=== PATIENT | female | born 1970 | race Caucasian/White ===

== ENCOUNTER 2023-02-25 06:08 | Day surgery (SDC) | payer BC, SELFPAY ==
[2023-02-25] VITALS (10 sets, daily range): BP systolic 138–176; BP diastolic 66–84; PULSE 44–62; RESP 8–19; TEMP 36–36.7; O2SAT 94–99; BMI 46.6
--- NOTE | 2023-02-25 06:29 | W.PM.PROGNOT ---
Date of Service Date of service: 02/25/23 Time of Service: 06:57 Assessment and Plan Assessment and plan (1) Chronic cholecystitis: Status: Acute Assessment and plan: Mrs Martinez is a pleasant 52-year-old female with a history of abdominal pain especially after eating fatty foods.? She is being seen in [facility] today prior to her procedure. This has been ongoing intermittently for 10 years.? Recently has become constant.? She is also recently developed loose stools although they are not necessarily correlated with eating.? Although her ejection fracture on her HIDA scan was low normal she did have pain with the injection of CCK which is a good indicator that she more than likely has chronic cholecystitis.? She never did have an ultrasound. I reviewed laparoscopic cholecystectomy with the possibility of having to go open with the patient.? I used a pamphlet with pictures to go over the pathophysiology of gallbladder disease as well as the surgery itself.? We reviewed the possible complications.? Patient seemed to have a good understanding of the complications and asked good questions.? Risks, benefits, complications were reviewed with the patient in the office.? Complications include but are not limited to bleeding, infection, injury to stomach, small bowel and large bowel, injury to the pancreas, injury to the common bile duct necessitating drainage and referral to tertiary center for repair, bile leak, adverse reactions to the medications, complications of intubation including a sore throat or injury to the uvula, [place], stroke and even .? Questions were entertained and answered to her satisfaction and she wished to proceed.? No guarantees were given or implied. Because of her previous laparoscopic surgeries I will do an open port placement at the umbilicus to make sure that she does not have bowel adhered to the abdominal wall.? I did discuss with her that she is at slight increased risk of surgical site infection due to her obesity as well as readmission and serious complications.? Surgical risk calculator was used which showed her risk of serious complication at 4.7% with the average being 2.3%.? She is at increased risk for pneumonia.(Serious complications include heart attack, pneumonia, kidney failure, blood clots, returning to the OR, wound infection, sepsis and intubation after surgery.? She is also at increased risk for hernias.? She understands these risks and wishes to proceed. Anesthesia: general with airway Previous surgical intolerances: No Previous surgical complications: No Pulmonary risk factors: Yes (obesity, YOUNG and asthma) Planned procedure: Yes Sleep apnea risks: YES (documented YOUNG-uses CPAP) Can climb one flight of stairs (12-13 steps) in less than 30 seconds without stopping and without symptoms: No The surgery proposed for this patient is: moderate risk Active cardiac conditions: none Active risk factors: Obesity, HTN, Asthma, YOUNG ASA (acetylsalicylic acid): not used Beta blockers: not used I also discussed with her postoperative expectations including going home the same day, using Tylenol, ibuprofen for pain.? More than likely she will need narcotics for 2 to 3 days.? Risk of blood clots if she does not move around after surgery were also reviewed. Proceed with with laparoscopic cholecystectomy possible open possible intraoperative cholangiogram. Subjective Subjective Interval history since last seen: I saw Rosanne in [facility] today. She is here today to have her Gallbladder removed. Since I saw her in the office she has not had any new symptoms. She denies any chest pain or palpitations. We reviewed the procedure again as well as the risks, benefits and complications. She has no more questions about the procedure or the risks and wishes to proceed. Exam Const General: comfortable and no acute distress Nutritional Appearance: average body habitus Orientation: alert and oriented x3 HENMT Head: normocephalic and atraumatic Resp Effort & Inspection: normal respiratory effort Auscultation: clear to auscultation bilaterally Cardio Rate: regular rate Rhythm: regular rhythm Time Spent with Patient Time Spent with Patient: <25 minutes Time was spent: counseling the patient
--- NOTE | 2023-02-25 06:31 | W.PM.OP ---
Date of service: 02/25/23 Time of Service: 08:48 Operative Note Operative Note DATE OF PROCEDURE: 02/25/23 PRE-OP DIAGNOSIS: chronic cholecystitis POST-OP DIAGNOSIS: same PROCEDURE: Laparoscopic Cholecystectomy SURGEON: Valorie Noe EVENT PLANNING INTERN: Sharyn Palomares ANESTHESIA TYPE: Local By Surgeon and General LMA/ETT Refer to Anesthesia Record ESTIMATED BLOOD LOSS: 25 PATHOLOGY: other (Gallbladder) COMPLICATIONS: None Patient was transported to: PACU Patient's condition: stable Indications: Mrs Martinez is a pleasant 52-year-old female with a history of abdominal pain especially after eating fatty foods.? This has been ongoing intermittently for 10 years.? Recently has become constant.? She is also recently developed loose stools although they are not necessarily correlated with eating.? Although her ejection fracture on her HIDA scan was low normal she did have pain with the injection of CCK which is a good indicator that she more than likely has chronic cholecystitis.? She never did have an ultrasound. Findings: Normal appearing Gallbladder Liver with fatty infiltration and irregular contour Procedure Description: After informed consent was obtained the patient was brought to the operating room, placed in a supine position and monitors were applied. SCDs were applied to her lower extremities and she was placed under general anesthesia and intubated without difficulty. Her abdomen was then prepped and draped in a sterile fashion using ChloraPrep. At this point a timeout was done and the patient's name, date of , procedure type, allergies to medications, metal in her body, antibiotic and DVT prophylaxis were reviewed. Fire risk was assessed. At this point 0.25% Bupivocaine was injected just above the umbilicus into the dermis and subcutaneous tissue. A 10 mm incision was made with an 11 blade. The subcutaneous tissue was dissected with a hemostat. The fascia was grasped with cockers and the fascia was opened sharply. A 5 mm port was placed under direct visualization. The abdomen was insuflated and then 3 more ports were placed. A 12 mm port was placed in the subxiphoid area and two 5 mm ports were placed in the right upper quadrant. The liver was inspected. There was fatty infiltration and some cobbelstone appearance. The patient's bed was then turned to the left and her head was brought up. The gallbladder was grasped at the body and pushed towards the right shoulder, this allowed me to visualize the neck of the gallbladder. The neck was grasped and pulled towards the right flank and down allowing me to visualize the lymph node. Using a [place] dissector with cautery the lymph node was gently dissected away from the tissues and the fatty tissue was also dissected away. The cystic duct was identified it was normal in size. The duct was dissected 360 degrees using the [place] dissector in order for me to visualize its entrance into the gallbladder. Liver was noted behind it. There were no other structures right behind. Critical view was achieved. 3 clips were placed one proximal and 2 distal and the cystic duct was cut. The cystic artery was then identified and dissected 360 degrees. It was located just medial to the cystic duct. It was visualized going into the gallbladder. Once dissected 3 more clips were placed one proximal and 2 distal and the artery was cut. Using the hook dissector the gallbladder was then dissected away from the liver bed and placed into an Endo Catch bag and pulled through the 12 mm port site. The 12 mm port was placed back into the abdomen under direct visualization. The liver bed was inspected no bleeding was noted. There was a small amount of blood around along the right gutter and this was suctioned.normal saline until the effluent was clear. 10 cc of lidocaine was injected above the liver bed. The 12 mm fascial defect was closed with a 0 Vicryl suture using the endo suture. The 12 mm port was removed as well as the 2 right upper quadrant ports were removed under direct visualization and no bleeding was noted from the fascia. The abdomen was deflated completely and lastly the umbilical port was removed. The skin was cleaned and the incisions were closed with 4-0 Vicryl. The skin was dried and dermabond was applied over the closed incisions. Needle, instrument and sponge counts were correct at the end of the case. At this point the patient was woken up, extubated and taken back to recovery in stable condition. There were no immediate complications.
[2023-02-25] MEDS: Acetaminophen 500 MG TAB 1000 MG PO (06:42)
[2023-02-25] MEDS: Celecoxib 200 MG CAP PO (06:42)
[2023-02-25] MEDS: Gabapentin 300 MG CAP 600 MG PO (06:42)
[2023-02-25] MEDS: Lactated Ringers 1,000 ML 80 ML IV (06:50)
--- NOTE | 2023-02-25 07:01 | ANES.PREOP_ITS ---
General Info Date of Service Date Performed: 02/25/23 Height: 5 ft 2 in Weight: 115.7 kg Body Mass Index (BMI): 46.6 Surgical Procedure: Operation Date: 02/25/23 07:40 Proposed Procedure Side Surgeon p Cholecystectomy Laparoscopic Valorie Noe MD Meds Allergies and Home Medications Allergies Allergy/AdvReac Type Severity Reaction Status Date / Time Penicillins Allergy Intermediate Hives Verified 02/25/23 06:17 Sulfa (Sulfonamide Allergy Intermediate Hives Verified 02/25/23 06:17 Antibiotics) Home Medication Medication Instructions Recorded hydroxychloroquine 200 mg tablet 200 mg PO BID 02/05/23 cholecalciferol (vitamin D3) 125 125 mcg PO DAILY 02/10/23 mcg (5,000 unit) capsule citalopram 20 mg tablet 20 mg PO DAILY 02/10/23 loratadine 10 mg capsule 10 mg PO DAILY 02/10/23 metoprolol succinate 100 mg 100 mg PO DAILY 02/10/23 tablet,extended release 24 hr metoprolol succinate 50 mg 50 mg PO DAILY 02/10/23 tablet,extended release 24 hr oxybutynin chloride 5 mg tablet 5 mg PO DAILY 02/10/23 pantoprazole 40 mg tablet,delayed 40 mg PO DAILY 02/10/23 release simvastatin 20 mg tablet 20 mg PO DAILY 02/10/23 simvastatin 40 mg tablet 40 mg PO DAILY 02/10/23 vitamin B12 500 mcg-folic acid 400 1 tab PO DAILY 02/10/23 mcg tablet Current Visit Medications: Current Medications Generic Name Dose Route Start Last Admin Trade Name Freq PRN Reason Stop Dose Admin Acetaminophen 1,000 mg 02/25/23 06:00 02/25/23 06:42 Acetaminophen 500 Mg Tab PO 03/26/23 23:59 1,000 mg PREOP SKINNY Administration Celecoxib 200 mg 02/25/23 06:00 02/25/23 06:42 Celecoxib 200 Mg Cap PO 03/26/23 23:59 200 mg PREOP SKINNY Administration Gabapentin 600 mg 02/25/23 06:00 02/25/23 06:42 Gabapentin 300 Mg Cap PO 03/26/23 23:59 600 mg PREOP SKINNY Administration Ringer's Solution 1,000 mls @ 80 mls/hr 02/25/23 06:00 02/25/23 06:50 IV 03/26/23 23:59 80 mls/hr INFUSION SKINNY Administration Cefazolin Sodium/Dextrose 2 gm in 50 mls @ 100 mls/hr 02/25/23 06:00 Ancef Duplex IVPB 03/26/23 23:59 PREOP SKINNY Ondansetron HCl 4 mg/ Sodium 52 mls @ 200 mls/hr 02/25/23 06:33 Chloride IVPB 03/27/23 06:32 Q6H PRN PRN IV Miscellaneous Supplies 1 each 02/25/23 06:00 Iv Access IV 03/26/23 23:59 DIRECTED SKINNY Ibuprofen 600 mg 02/25/23 06:33 Ibuprofen 600 Mg Tab PO 03/27/23 06:32 Q6H PRN PRN Pain Sodium Chloride 0 ml 02/25/23 06:00 Normal Saline Flush 10 Ml Syr IV 03/26/23 23:59 PRN PRN Sodium Chloride 0 ml 02/25/23 06:00 Normal Saline 10 Ml Vial IJ 03/26/23 23:59 DIRECTED PRN Sterile Water 0 ml 02/25/23 06:00 Water,Injection,Sterile 10 Ml Vial IJ 03/26/23 23:59 DIRECTED PRN Tramadol HCl 50 mg 02/25/23 06:33 Tramadol 50 Mg Tab PO 03/27/23 06:32 Q6H PRN PRN Pain PFSH Active Problems Active Problems: Problem Status Onset Code Asthma J45.909 Osteoarthritis of hip M16.9 Allergic rhinitis J30.9 Essential hypertension I10 Depression F32.A Stress incontinence (female) (male) N39.3 YOUNG (obstructive sleep apnea) G47.33 Abdominal pain R10.9 Chronic cholecystitis K81.1 Morbid obesity with BMI of 45.0-49.9, adult E66.01, Z68.42 Medical History Medical History High cholesterol Surgical History Surgical History S/P laparoscopy for endometriosis S/P tonsillectomy and adenoidectomy and uvulectomy S/P tubal ligation Tobacco Smoking/Tobacco Use Status: Current every day Tobacco Type: cigarettes Smoking packs per day: 1 Smoking cigarettes per day: 20.0 Years smoked: 38 Smoking pack- years: 38.00 Alcohol Alcohol Intake: current Alcohol intake frequency: holidays/special occasions only Substance Use Substance use: Never Substance use type: does not use Vital Signs and Lab Results Vital Signs Most Recent Vital Signs in EMR: Most Recent Vital Signs Temp Pulse Resp BP Pulse Ox 36.5 C 55 L 16 140/82 98 02/25/23 06:20 02/25/23 06:20 02/25/23 06:20 02/25/23 06:20 02/25/23 06:20 Lab Results Blood Type / Crossmatch: No Data to Display Complete Blood Count: No Data to Display Complete Metabolic Panel: No Data to Display Liver Function Panel: No Data to Display Coagulation Panel: No Data to Display Cardiac Panel: No Data to Display Arterial Blood Gas: No Data to Display Venous Blood Gas: No Data to Display Pancreas Panel: No Data to Display Thyroid Panel: No Data to Display Infectious Disease: No Data to Display Blood Cultures: No Data to Display Toxicology Panel: No Data to Display Panel: No Data to Display Anesthesia Assessment and Plan Anesthesia History Personal History: No History of Anesthesia Complications Family History: No Family History of Anesthesia Complications Exercise Tolerance Exercise Tolerance: Metabolic Equivalents>4 Pertinent Negatives Pertinent Negatives: No Symptoms of GERD, No Major Cardiovascular Symptoms or Complaints and No Major Pulmonary Symptoms or Complaints Cardiac & Pulmonary Exam Cardiac Exam: Normal S1/S2 Heart Sounds Pulmonary Exam: Clear Bilateral Breath Sounds Implantable Cardiac Device Does patient have a Pacemaker or an ICD?: No Airway Exam Known Difficult Airway: No Mallampati Class: 2 Mouth Opening: Normal (> 3cm) Thyromental Distance: Less than 3 cm Neck Range of Motion: Full ROM Neck Circumference: Thick Teeth Condition: Removable Dentures/Plates Upper ASA Classification ASA Score: ASA 3 Emergency Case?: No NPO Status NPO Status: NPO Clears >2 hours, Solids >8 hours Status Status: Not Relevant due to Medical History Anesthesia Plan Resuscitation Status: Full Code Anesthesia Technique: General Anesthesia Airway Planned: Endotracheal Tube Monitors Used: Standard Monitors
[2023-02-25] MEDS: ceFAZolin 2 GM/50 ML BAG IVPB (07:31)
--- NOTE | 2023-02-25 08:15 | GB_PTH ---
PATIENT: Rosanne Martinez LOC: [facility] U#:[id number] AGE/SX: 52/F ROOM: RE02/25/[address]: Valorie Noe MD : 1970 BED: DIS: 02/25/2023 SPEC #: [id number] RECD: 02/25/23 12:31 STATUS: [facility] #: [id number] SYLWIA: 02/25/23 08:[address]: Valorie Noe DEPT: Surgical Specimen RECD BY: Camille Alvarado ENTERED: 02/25/23 12:31 SP TYPE: GB OTHR DR: Brynn Sharp Tissues: 1 - GALLBLADDER Procedures: GROSS AND MICRO LEVEL 3 Comments: [id number]
[2023-02-25] MEDS: Bupivacaine 0.25% Pres-Free 30 ML VIAL (08:34)
--- NOTE | 2023-02-25 08:57 | W.PM.DSUDISC ---
Date of service: 02/25/23 Time of Service: 10:13 Discharge Plan Disposition Patient Disposition: Home Condition: Stable Discharge Details Reason For Visit: Lap. [facility] Attending Provider: Valorie Noe Primary Care Provider: Brynn Sharp Home Meds and New Rx's Prescriptions: New tramadol 50 mg tablet 50 mg PO Q6H PRNQty: 14 0RF Continued metoprolol succinate 100 mg tablet extended release 24 hr 100 mg PO DAILY metoprolol succinate 50 mg tablet extended release 24 hr 50 mg PO DAILY simvastatin 40 mg tablet 40 mg PO DAILY simvastatin 20 mg tablet 20 mg PO DAILY pantoprazole 40 mg tablet,delayed release (DR/EC) 40 mg PO DAILY loratadine 10 mg capsule 10 mg PO DAILY vitamin T91-lmmdo acid 500-400 mcg tablet 1 tab PO DAILY Rx Instructions: administer with a meal cholecalciferol (vitamin D3) 125 mcg (5,000 unit) capsule 125 mcg PO DAILY citalopram 20 mg tablet 20 mg PO DAILY oxybutynin chloride 5 mg tablet 5 mg PO DAILY hydroxychloroquine 200 mg tablet 200 mg PO BID Discharge Instructions Instructions: Low Fat Diet (DC), Non-Alcoholic Fatty Liver Disease (GEN), Laparoscopic Cholecystectomy (DC) Additional Instructions: Activity at Home after surgery: 1. Make sure you walk outside at least 4 times per day 2. You should be able to climb a flight of stairs 3. No driving while in pain or taking pain medications 4. No strenuous activity or heavy lifting (no more then 10 lb) for 2 weeks (laparoscopic surgery) Diet, Nutrition, & wound healin. Avoid alcohol until after you are recovered from your surgery 2. Make sure to eat plenty of lean protein (meat, fish, eggs, cottage cheese, beans) 3. Eat a variety of fruits and vegetables. Eat plenty of high fiber foods to avoid constipation. 4. Drink plenty of liquids to stay hydrated and avoid constipation Pain Medications: 1. Tylenol 650mg every 6 hours as needed and Ibuprofen 600 mg every 6 hours as needed. You may alternate between the 2 medications every 3 hours 2. If a narcotic has been prescribed take as directed only for breakthrough pain For Constipation: 1. Take Milk of Magnesia or MiraLax as needed for constipation Other: 1. You may shower daily. Do not scrub the incisions 2. Do not soak the incisions for 1 week 3. You may alternate ice and heat as needed for pain and swelling Wound Care: 1. Keep the incisions clean and dry Please call our office if you develop: 1. Fevers >101.5 2. Nausea or Vomiting 3. Worsening pain 4. Redness and thick discharge from the wounds If after hours please call the Hospital at and ask to speak to the on-call surgeon Stand Alone Forms: Anesthesia Discharge InstChristina, [place] ([facility]) Referrals: Sharyn Palomares PA [[facility]] - 03/05/23 Activity:: as above Shower/Bathe:: 24 hours Diet:: low fat Discharge Orders Discharge Orders: Discharge Order (Routine); Ordered 02/25/23 Ordered By: Valorie Noe DS: Diagnosis Discharge Diagnosis (1) Chronic cholecystitis: Status: Acute Asessment and Plan: The patient is doing well post-op from their Laparoscopic Cholecystectomy surgery.? They are having no nausea or vomiting. They are tolerating liquids and a snack. The pt is not having any chest pain or SOB.? Their pain is adequately controlled. They have been able to urinate.? ?HEENT:? no eye pain/drainage/redness/swelling. Mild sore throat ?Cardio- NSR, no chest pain, BP stable- see VS record ?Pulm: no sob or productive cough. No hemoptysis ?Incision- dressing is c/d/i w/ no excessive bleeding or drainage. Appropriately tender along the incisions. ?I discussed with the patient the findings at the time of surgery and the patient?s progress. ?We reviewed expectations at home; what the patient could expect for recovery time, and in the post-operative period.? We discussed the importance of walking to avoid blood clots and pneumonia.? We discussed and reviewed the patient's post-operative wound care and dressing needs.?? We reviewed their step-whiting pain management plan, Rx called to the pharmacy of their choice.? We reviewed activity and limitations-see discharge instructions. We reviewed warning signs, and when to seek medical attention- see d/c instructions.?? Patient was given a postoperative follow-up appointment. Patient verbalized understanding of their postoperative instructions, how do to take care of themselves and their incision, and the pain management plan. Please see discharge instructions.?
[2023-02-25] MEDS: fentaNYL 100 MCG/2 ML VIAL IVP ×2 (09:04→09:31)
[2023-02-25] MEDS: Ibuprofen 600 MG TAB PO (10:33)
[2023-02-25] MEDS: traMADol 50 MG TAB PO (10:59)
--- NOTE | 2023-02-25 11:06 | W.ANESPOSTOP ---
Postoperative Evaluation Date, Time and Location Date Performed: 02/25/23 Time Performed: 11:06 Patient Location: Day Surgery Unit Vital Signs Most Recent Imported Vital Signs: Most Recent Vital Signs Temp Pulse Resp BP Pulse Ox 36.3 C L 53 L 16 151/79 H 98 02/25/23 10:20 02/25/23 10:20 02/25/23 10:20 02/25/23 10:20 02/25/23 10:20 Pain Score Most Recent Pain Score: Most Recent Pain Score Pain Level 4 02/25/23 10:20 Assessment Mental Status: Awake (Alert & Oriented to Patient Baseline) Airway and Respiratory Function: Patent airway with normal (patient baseline) respiratory exam Cardiovascular Function: Hemodynamically Stable Hydration Status: Adequately Hydrated Nausea & Vomiting: No Nausea or Vomiting Pain: Pain is tolerable per patient Peripheral Nerve Block: Patient did not receive a nerve block
== END 2023-02-25 11:15 | disposition home or self-care (01) ==
PROVIDERS: PCP Internal Medicine; Visit Provider Surgery
PROC: 0FT44ZZ Resection of Gallbladder, Percutaneous Endoscopic Approach (ICD-10-PCS; CPT 47562; principal; 2023-02-25 07:30)
DX: K81.2 Acute cholecystitis with chronic cholecystitis (principal); E66.01 Morbid (severe) obesity due to excess calories; Z68.42 Body mass index [BMI] 45.0-49.9, adult; G47.33 Obstructive sleep apnea (adult) (pediatric); I10 Essential (primary) hypertension; F17.210 Nicotine dependence, cigarettes, uncomplicated
CPT/HCPCS: 47562; 88304; J0690; J1100; J1885; J2250; J2405; J2704; J3010

== ENCOUNTER 2023-03-09 15:48 | Outpatient (CLI) | payer BC, SELFPAY ==
--- NOTE | 2023-03-09 12:30 | DI.RAD_ITS ---
Exam(s) XR CHEST 2V PA LATERAL EXAM: XR CHEST 2V PA LATERAL CLINICAL HISTORY: WHEEZING R06.2 ASTHMA J45.909 OBESITY E66.01 APNEA G47.33 HYPERTENSION I10. TECHNIQUE: 2D digital imaging was performed. COMPARISON: No exams were available for comparison FINDINGS: 2 views: Heart size is normal. The mediastinum is not widened. Lungs are clear. No infiltrates nor pleural effusions. IMPRESSION: No acute pulmonary findings. DATA REPOSITORY: RADIATION DOSE DELIVERED:
== END 2023-03-09 16:08 ==
LOC: DI 15:49
PROVIDERS: PCP Internal Medicine; Visit Provider Surgery
DX: R06.2 Wheezing (principal); F17.210 Nicotine dependence, cigarettes, uncomplicated; J45.909 Unspecified asthma, uncomplicated; E66.01 Morbid (severe) obesity due to excess calories
CPT/HCPCS: 71046